=== PATIENT | female | born 1965 | race African-American/Black ===

== ENCOUNTER 2017-02-07 16:43 | Outpatient (CLI) | payer BC ==
[~2017-02-07 16:43] MED LIST: CARAFATE1 GM PO; DEXL60CA4 PO
== END 2017-02-07 21:21 | disposition home or self-care (01) ==
LOC: LABW 16:43
DX: N39.0 Urinary tract infection, site not specified (principal)
CPT/HCPCS: 81000; 87088

== ENCOUNTER 2017-02-15 11:02 | Outpatient (CLI) | payer BC | END 2017-02-15 21:10 | disposition home or self-care (01) | LOC: MAMMO 11:02 | DX: Z12.31 Encounter for screening mammogram for malignant neoplasm of breast (principal) ==

== ENCOUNTER 2017-05-25 12:01 | Outpatient (CLI) | payer BC | END 2017-05-25 21:53 | disposition home or self-care (01) | LOC: LABW 12:01 | DX: R50.9 Fever, unspecified (principal) | CPT/HCPCS: 87804 ==

== ENCOUNTER 2020-09-24 12:48 | Outpatient (CLI) | payer BC | END 2020-09-24 23:01 | disposition home or self-care (01) | LOC: MAMMO 12:48 | PROVIDERS: ATTEND Family Medicine | DX: Z12.31 Encounter for screening mammogram for malignant neoplasm of breast (principal); Z78.0 Asymptomatic menopausal state ==

== ENCOUNTER 2022-01-16 10:54 | Outpatient (CLI) | payer OTHER | END 2022-01-16 20:21 | disposition home or self-care (01) | LOC: US 10:54 | PROVIDERS: ATTEND Family Medicine | DX: E07.89 Other specified disorders of thyroid (principal); R79.89 Other specified abnormal findings of blood chemistry ==